=== PATIENT | female | born 1965 | race Caucasian/White ===

== ENCOUNTER → 2017-12-07 | Outpatient (CLI) | payer OTHER ==
[~2017-12-07] MED LIST: ACET500 PO; ASPI325EC PO; Ecotrin325 MG PO; GABA300 PO; LEVSOD50 PO; MELO7.5 PO; OXYC5 PO; PANT40 PO; PARO20 PO
[2017-12-07 10:41] LABS: Source, Urine Clean Catch
[2017-12-07 16:16] LABS: Appearance, Urine Cloudy (Clear); Bilirubin, Urine Neg (Neg); Blood, Urine 5+ (Neg); Color, Urine Yellow (P-Yellow); Glucose Qualitative, Urine Neg (Neg); Ketones, Urine Neg (Neg); Leukocyte Esterase, Urine Neg (Neg); Nitrite, Urine Neg (Neg); Protein, Urine Neg (Neg); Urobilinogen, Urine NORM (Normal)
[2017-12-07 16:29] LABS: Amorphous Heavy ([, 0-Heavy]); White Blood Cells, Urine 0-2 /hpf (0-5)
[2017-12-07 16:30] LABS: Bacteria Few /hpf; Squamous Epithelial Cells Few /hpf (Few)
== END ==
LOC: LAB SHORT 10:39 → LAB 10:39
PROVIDERS: Nurse Practitioner Family
DX: R35.0 Frequency of micturition (principal)
CPT/HCPCS: 81001

== ENCOUNTER → 2019-09-09 | Outpatient (CLI) | payer BC ==
[2019-09-09 19:36] LABS: Appearance, Urine Turbid (Clear); Bilirubin, Urine Neg (Neg); Blood, Urine 4+ (Neg); Color, Urine Yellow (P-Yellow); Glucose Qualitative, Urine Neg (Neg); Ketones, Urine Neg (Neg); Leukocyte Esterase, Urine Neg (Neg); Nitrite, Urine Neg (Neg); Protein, Urine 1+ (Neg); Specific Gravity, Urine 1.025 (1.003-1.022); Urobilinogen, Urine NORM (Normal)
[2019-09-09 19:52] LABS: Amorphous Heavy (0-Heavy); Bacteria Rare /hpf; Red Blood Cells, Urine 0-2 /hpf (0-2); Squamous Epithelial Cells Mod /hpf (Few); White Blood Cells, Urine 0-2 /hpf (0-5)
== END | disposition home or self-care (01) ==
LOC: LAB SHORT 18:09 → LAB 18:09
PROVIDERS: Nurse Practitioner Family
DX: R82.79 Other abnormal findings on microbiological examination of urine (principal)
CPT/HCPCS: 81001

== ENCOUNTER → 2022-09-26 | Outpatient (CLI) | payer OTHER ==
[2022-09-26 12:27] LABS: Source, Urine Voided
[2022-09-26 14:43] LABS: Appearance, Urine Turbid (Clear); Blood, Urine 4+ (Neg); Color, Urine Yellow (P-Yellow); Glucose Qualitative, Urine Neg (Neg); Ketones, Urine Neg (Neg); Leukocyte Esterase, Urine Neg (Neg); Nitrite, Urine Neg (Neg); Protein, Urine 2+ (Neg); Specific Gravity, Urine 1.025 (1.003-1.022); Urobilinogen, Urine 1+ (Normal)
[2022-09-26 15:18] LABS: Bilirubin, Urine 1+ (Neg)
[2022-09-26 15:19] LABS: Squamous Epithelial Cells Mod /hpf (Few); White Blood Cells, Urine 0-2 /hpf (0-5)
[2022-09-26 15:20] LABS: Amorphous Heavy (0-Heavy)
[2022-09-26 15:21] LABS: Bacteria Mod /hpf
== END | disposition home or self-care (01) ==
LOC: LAB 07:50 → LAB SHORT 07:50
PROVIDERS: Nurse Practitioner Family
DX: R31.29 Other microscopic hematuria (principal)
CPT/HCPCS: 81001; 87086